=== PATIENT | female | born 1980 | race Two or more races ===

== ENCOUNTER → 2020-01-13 | Emergency (ER) | payer OTHER ==
[~2020-01-13] VITALS: Ht 157.5 cm; Wt 77.6 kg
[~2020-01-13] MED LIST: FLEXERIL PO; GABAPENTIN400 MG PO; KETO10TA2 PO; LEVSIN0.125 MG PO; NEURIN; NEURIN SL; ORPHENADRINE C100 MG PO; OSTERA TABLET1 EACH; RELAFEN DS1000 MG; TOPROL XL25 M1 PO; VOLTAREN100 GM
== END | disposition home or self-care (01) ==
LOC: ER 23:34
DX: M54.5 Low back pain (principal)

== ENCOUNTER 2020-01-27 07:54 | Emergency (ER) | payer OTHER ==
[~2020-01-27] VITALS: Ht 157.5 cm; Wt 77.6 kg
[~2020-01-27 07:54] MED LIST changes: -GABAPENTIN400 MG PO; -NEURIN; -ORPHENADRINE C100 MG PO; -RELAFEN DS1000 MG; -VOLTAREN100 GM
== END 2020-01-27 10:36 | disposition home or self-care (01) ==
LOC: ER 07:54
DX: M54.5 Low back pain (principal)

== ENCOUNTER 2020-02-05 00:29 | Emergency (ER) | payer OTHER ==
[~2020-02-05] VITALS: Ht 157.5 cm; Wt 77.6 kg
[2020-02-05] MEDS ORDERED: RELAFEN DS1000 MG (00:52)
[2020-02-05] MEDS ORDERED: VOLTAREN100 GM (00:53)
[2020-02-05] MEDS ORDERED: GABAPENTIN400 MG PO (03:46)
== END 2020-02-05 04:27 ==
LOC: ER 00:29
DX: M54.5 Low back pain (principal)

== ENCOUNTER 2020-02-13 00:02 | Emergency (ER) | payer OTHER ==
[~2020-02-13] VITALS: Ht 157.5 cm; Wt 77.6 kg
[~2020-02-13 00:02] MED LIST changes: +GABAPENTIN400 MG PO; +RELAFEN DS1000 MG; +VOLTAREN100 GM
[2020-02-13] MEDS ORDERED: NEURIN (00:15)
[2020-02-13] MEDS ORDERED: ORPHENADRINE C100 MG PO (06:46)
== END 2020-02-13 06:56 | disposition home or self-care (01) ==
LOC: ER 00:02
DX: M54.5 Low back pain (principal); M54.6 Pain in thoracic spine

== ENCOUNTER 2020-03-05 13:50 | Inpatient (IN) | payer OTHER ==
[~2020-03-05] VITALS: Ht 157.5 cm; Wt 77.1 kg
[~2020-03-05 13:50] MED LIST changes: +NEURIN; +ORPHENADRINE C100 MG PO
--- NOTE | 2020-03-05 15:06 | NUR ---
se recibe paciente alerta, ambulando y orientada en tiempo lugar y persona. paciente informa que la misma se realizo varios laboratorio sdurante el kevin de mando y alegan que le reportaron la hemoglobina en un valor de 5.0. 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 Carlos oLganes hematologo oncologo. paciente informa que desea que se comuniquen con el mismo para que puedan transfundirla ashley alegada recomendacion de [facility].
--- NOTE | 2020-03-05 17:18 | NUR ---
SE ORIENTA PTE SOBRE TX MEDICO EL CUAL REFIERE ENTENDER.SE LE EXTRAEN MUESTRAS BAJO MEDIDAS ASEPTICAS,SE CANALIZA Y SE COLOCA FLUIDOS DE MANTENIMIENTO BAJANDO SIN DIFICULTAD.PTE SOLICITA EN DORITA QUIERE ESTAR,YA QUE ENTIENDE QUE DEBE ESTAR BELLO POR DIAGNOSTICO DE MIELOMA AUNQUE NO SE ENCUENTRA EN QUIMIOTERAPIA TODAVIA,SE ORIENTA A LA MISMA QUE AL MOMENTO ERA POSIBLE CHERELLE NO SE LE ASEGURA POR CUANTO TIEMPO,AL NO TENER ORDEN DE AISLAMIENTO.
--- NOTE | 2020-03-05 18:18 | NUR ---
SE LLAMA A BANCO DE [facility] Y SE NOTIFICA A MR.MARTINEZ ROBBINSOS PILOTOS PARA DOS UNIDADES DE PRBC PARA TRANSFUNDIR.
[2020-03-07] MEDS ORDERED: MIRENA1 EACH (07:47)
[2020-03-07] MEDS ORDERED: TRAM1TAB98 PO (07:48)
[2020-03-07] MEDS ORDERED: ALPRAZOLAM0.5 MG (07:48)
[2020-03-07] MEDS ORDERED: DEXAMETHASONE4 MG PO (07:48)
[2020-03-10] MEDS ORDERED: LOSARTAN POTASS50 MG PO (07:37)
[2020-03-10] MEDS ORDERED: INTESTINEX680 M1 PO (07:40)
[2020-03-10] MEDS ORDERED: FAMOTIDINE20 MG PO (07:40)
[2020-03-10] MEDS ORDERED: DEXAMETHASONE4 MG PO (07:41)
== END 2020-03-10 14:16 | disposition home or self-care (01) | DRG 842 ==
LOC: ER 13:50 → SURH 20:07
PROVIDERS: ADMIT Internal Medicine; ATTEND Internal Medicine
PROC: 8E0ZXY6 Isolation (ICD-10-PCS; principal; 2020-03-05)
PROC: 30233N1 Transfusion of Nonautologous Red Blood Cells into Peripheral Vein, Percutaneous Approach (ICD-10-PCS; 2020-03-05)
PROC: 07DR3ZX Extraction of Iliac Bone Marrow, Percutaneous Approach, Diagnostic (ICD-10-PCS; 2020-03-07)
DX: C90.00 Multiple myeloma not having achieved remission (principal); Z20.828 Contact with and (suspected) exposure to other viral communicable diseases; G89.3 Neoplasm related pain (acute) (chronic); D63.0 Anemia in neoplastic disease; E83.52 Hypercalcemia; E87.6 Hypokalemia

== ENCOUNTER 2021-04-23 17:57 | Emergency (ER) | payer OTHER ==
[~2021-04-23] VITALS: Ht 149.9 cm; Wt 72.6 kg
[~2021-04-23 17:57] MED LIST changes: +ALPRAZOLAM0.5 MG; +DEXAMETHASONE4 MG PO; +FAMOTIDINE20 MG PO; +INTESTINEX680 M1 PO; +LOSARTAN POTASS50 MG PO; +MIRENA1 EACH; +TRAM1TAB98 PO
[2021-04-23] MEDS ORDERED: ZOVIRAX400 MG PO (18:16)
[2021-04-23] MEDS ORDERED: REVLIMID10 MG PO (18:17)
[2021-04-23] MEDS ORDERED: GABAPENTIN25 G1 MC (18:17)
== END 2021-04-23 22:05 | disposition home or self-care (01) ==
LOC: ER 17:57
DX: M54.50 Low back pain, unspecified (principal)

== ENCOUNTER 2021-04-26 22:33 | Emergency (ER) | payer OTHER ==
[~2021-04-26] VITALS: Ht 149.9 cm; Wt 72.6 kg
[~2021-04-26 22:33] MED LIST changes: +GABAPENTIN25 G1 MC; +REVLIMID10 MG PO; +ZOVIRAX400 MG PO
[2021-04-27] MEDS ORDERED: PERCOCET 5-3251 EACH PO (06:12)
== END 2021-04-27 06:21 ==
LOC: ER 22:33
DX: M54.59 Other low back pain (principal); M48.56XG Collapsed vertebra, not elsewhere classified, lumbar region, subsequent encounter for fracture with delayed healing

== ENCOUNTER 2021-05-01 02:21 | Inpatient (IN) | payer OTHER ==
[~2021-05-01] VITALS: Ht 149.9 cm; Wt 73.9 kg
[~2021-05-01 02:21] MED LIST changes: +PERCOCET 5-3251 EACH PO
[2021-05-04] MEDS ORDERED: TRAM1TAB98 (14:59)
[2021-05-04] MEDS ORDERED: METOPROLOL TART50 MG (14:59)
[2021-05-17] MEDS ORDERED: ZOVIRAX400 MG PO (13:00)
[2021-05-17] MEDS ORDERED: METOPROLOL TART50 MG PO (13:01)
[2021-05-17] MEDS ORDERED: BROMOCRIPTINE2.5 MG PO (13:03)
[2021-05-17] MEDS ORDERED: CYMBALTA30 MG PO ×2 (13:03→13:04)
[2021-05-17] MEDS ORDERED: FENTANYL1 EAC3 TD (13:07)
[2021-05-17] MEDS ORDERED: PERCOCET 5-3251 EACH PO (13:08)
[2021-05-17] MEDS ORDERED: NEURONTIN600 MG PO (13:09)
== END 2021-05-17 12:51 | disposition home or self-care (01) | DRG 803 ==
LOC: ER 02:21 → MEDJ 08:35 → SEC-K 08:35 → MEDJ 16:48
PROVIDERS: ADMIT Internal Medicine Hematology & Oncology; ATTEND Internal Medicine Hematology & Oncology
PROC: B030ZZZ Magnetic Resonance Imaging (MRI) of Brain (ICD-10-PCS; 2021-05-01)
PROC: 3E0F7SF Introduction of Other Gas into Respiratory Tract, Via Natural or Artificial Opening (ICD-10-PCS; 2021-05-01)
PROC: BR39ZZZ Magnetic Resonance Imaging (MRI) of Lumbar Spine (ICD-10-PCS; 2021-05-03)
PROC: BR37ZZZ Magnetic Resonance Imaging (MRI) of Thoracic Spine (ICD-10-PCS; 2021-05-03)
PROC: B030Y0Z Magnetic Resonance Imaging (MRI) of Brain using Other Contrast, Unenhanced and Enhanced (ICD-10-PCS; 2021-05-04)
PROC: 0QB13ZX Excision of Sacrum, Percutaneous Approach, Diagnostic (ICD-10-PCS; principal; 2021-05-09)
PROC: CW3NYZZ Positron Emission Tomographic (PET) Imaging of Whole Body using Other Radionuclide (ICD-10-PCS; 2021-05-15)
DX: D75.89 Other specified diseases of blood and blood-forming organs (principal); C90.00 Multiple myeloma not having achieved remission; Z94.81 Bone marrow transplant status; E22.1 Hyperprolactinemia; D35.2 Benign neoplasm of pituitary gland; M54.18 Radiculopathy, sacral and sacrococcygeal region; R77.1 Abnormality of globulin; G89.3 Neoplasm related pain (acute) (chronic); H54.7 Unspecified visual loss; M53.3 Sacrococcygeal disorders, not elsewhere classified; Z20.822 Contact with and (suspected) exposure to COVID-19; F43.23 Adjustment disorder with mixed anxiety and depressed mood
CPT/HCPCS: 70551; 70552; 72146; 72148

== ENCOUNTER 2021-06-04 03:16 | Inpatient (IN) | payer OTHER ==
[~2021-06-04] VITALS: Ht 149.9 cm; Wt 63.5 kg
[~2021-06-04 03:16] MED LIST changes: +BROMOCRIPTINE2.5 MG PO; +CYMBALTA30 MG PO; +FENTANYL1 EAC3 TD; +METOPROLOL TART50 MG; +METOPROLOL TART50 MG PO; +NEURONTIN600 MG PO; +TRAM1TAB98
[2021-06-05] MEDS ORDERED: BROMOCRIPTINE2.5 MG (08:24)
[2021-06-05] MEDS ORDERED: REVLIMID10 MG (08:25)
[2021-06-05] MEDS ORDERED: METOPROLOL TART50 MG (08:25)
[2021-06-13] MEDS ORDERED: TYLENOL 160 MG/5 ML PO (08:34)
[2021-06-13] MEDS ORDERED: LORAZEPAM0.5 MG PO (08:35)
[2021-06-13] MEDS ORDERED: RESTORIL15 MG PO (08:36)
[2021-06-13] MEDS ORDERED: FENTANYL1 EAC3 TD (08:37)
[2021-06-13] MEDS ORDERED: CYMBALTA30 MG PO (08:37)
[2021-06-13] MEDS ORDERED: GABAPENTIN25 G1 MC (08:37)
[2021-06-13] MEDS ORDERED: PERCOCET 5-3251 EACH PO (08:38)
[2021-06-13] MEDS ORDERED: DECADRON4 MG PO (08:39)
== END 2021-06-13 12:34 | disposition home or self-care (01) | DRG 81 ==
LOC: ER 03:16 → SURH 12:45
PROVIDERS: ADMIT Internal Medicine Hematology & Oncology; ATTEND Internal Medicine Hematology & Oncology
PROC: BW28ZZZ Computerized Tomography (CT Scan) of Head (ICD-10-PCS; principal; 2021-06-04)
PROC: 3E0F7SF Introduction of Other Gas into Respiratory Tract, Via Natural or Artificial Opening (ICD-10-PCS; 2021-06-04)
PROC: 8E0ZXY6 Isolation (ICD-10-PCS; 2021-06-04)
PROC: B030ZZZ Magnetic Resonance Imaging (MRI) of Brain (ICD-10-PCS; 2021-06-05)
DX: G93.6 Cerebral edema (principal); C90.00 Multiple myeloma not having achieved remission; Z94.81 Bone marrow transplant status; D49.6 Neoplasm of unspecified behavior of brain; R41.82 Altered mental status, unspecified; E83.39 Other disorders of phosphorus metabolism; H53.8 Other visual disturbances; F43.23 Adjustment disorder with mixed anxiety and depressed mood; Z20.822 Contact with and (suspected) exposure to COVID-19
CPT/HCPCS: 70545